=== PATIENT | male | born 2000 | race Caucasian/White ===

== ENCOUNTER 2020-03-08 16:13 | Emergency (ER) | payer MEDICAID ==
[~2020-03-08] VITALS: Ht 177.8 cm; Wt 63.5 kg
[2020-03-08 16:28] VITALS: BP 138/62
[2020-03-08] MEDS ORDERED: IBUPROFEN 800 MG TAB PO ONE (16:45)
== END 2020-03-08 17:05 | disposition home or self-care (01) ==
LOC: ER 16:13
DX: S01.01XA Laceration without foreign body of scalp, initial encounter (principal); W20.8XXA Other cause of strike by thrown, projected or falling object, initial encounter; Y93.89 Activity, other specified; Y92.89 Other specified places as the place of occurrence of the external cause; Y99.8 Other external cause status
CPT/HCPCS: 12002

== ENCOUNTER 2021-06-17 14:09 | Emergency (ER) | payer SELFPAY ==
[~2021-06-17] VITALS: Ht 180.3 cm; Wt 67.1 kg
[2021-06-17 18:01] VITALS: BP 131/72
== END 2021-06-17 18:08 | disposition home or self-care (01) ==
LOC: ER 14:09
DX: S80.261A Insect bite (nonvenomous), right knee, initial encounter (principal); W57.XXXA Bitten or stung by nonvenomous insect and other nonvenomous arthropods, initial encounter; Y93.89 Activity, other specified; Y92.89 Other specified places as the place of occurrence of the external cause; Y99.8 Other external cause status

== ENCOUNTER 2025-10-05 16:36 | Emergency (ER) | payer MEDICAID ==
[~2025-10-05] VITALS: Ht 177.8 cm; Wt 69.2 kg
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
--- NOTE | 2025-10-05 18:51 | DVH ---
CLINICAL INDICATION: r/o dislocation. Pain. TECHNIQUE: XYXY R SHOULDER 2+ VIEW XRAY Comparison: None FINDINGS/IMPRESSION: : There is no evidence of acute fracture or dislocation. Soft tissues are unremarkable.
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
[2025-10-05 19:31] LABS: Hematocrit 43.1 % (41.0-53.0); Hemoglobin 15.1 g/dL (13.5-17.5); Mean Corpuscular Hemoglobin 30.9 pg (28.0-32.0); Mean Corpuscular Volume 87.8 fL (80.0-100.0); Nucleated Red Blood Cells % 0.0 %
[2025-10-05 19:42] LABS: Chloride 105 mmol/L (98-107); Potassium 3.8 mmol/L (3.5-5.1); Sodium 142 mmol/L (136-145)
[2025-10-05 19:43] LABS: Anion Gap 11 (5-15); Calcium 10.2 mg/dL (8.7-10.4); Carbon Dioxide 26 mmol/L (20-31)
[2025-10-05 19:48] LABS: BUN/Creatinine Ratio 14.3 (10.0-20.0); Blood Urea Nitrogen 17 mg/dL (9-23)
[2025-10-05] MEDS: IOHEXOL 300 MG/ML 100ML BOTTLE IJ ONE (19:59)
[2025-10-05 20:34] LABS: Glucose 114 mg/dL (74-106)
[2025-10-05] MEDS: MORPHINE SULFATE 4 MG/ML SYR/VIAL IV ONE (20:45)
[2025-10-05] MEDS: SODIUM CHLORIDE 0.9% 1,000 ML IV ONE (20:45)
[2025-10-05] MEDS: ONDANSETRON HCL 4 MG/2 ML VIAL IV ONE (20:46)
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
[2025-10-05 21:59] VITALS: BP 122/77; PULSE 88; RESP 18; TEMP 99.1; O2SAT 98
[2025-10-05] MEDS ORDERED: CEPH500T PO (22:11)
[2025-10-05] MEDS ORDERED: MUPI2CRE17 EX (22:12)
[2025-10-05] MEDS ORDERED: GABA300T4 PO (22:12)
[2025-10-05] MEDS: BACITRACIN TOP OINT 1 UD PKG TOP ONE (22:25)
== END 2025-10-05 22:47 | disposition home or self-care (01) ==
LOC: ER 16:36
DX: S43.101A Unspecified dislocation of right acromioclavicular joint, initial encounter (principal); S21.131A Puncture wound without foreign body of right front wall of thorax without penetration into thoracic cavity, initial encounter; V86.55XA Driver of 3- or 4- wheeled all-terrain vehicle (ATV) injured in nontraffic accident, initial encounter; Y93.89 Activity, other specified; Y92.89 Other specified places as the place of occurrence of the external cause; Y99.8 Other external cause status
CPT/HCPCS: 36415; 71046; 71260; 73030; 73200; 74177; 80048; 85025; 96374; 96375; 99285; J2270; J2405; J7030; Q9967; 96361